=== PATIENT | male | born 1985 | race Caucasian/White ===

== ENCOUNTER 2020-02-18 14:48 | Emergency (ER) | payer OTHER ==
[~2020-02-18] VITALS: Ht 170.2 cm; Wt 77.1 kg
[2020-02-18 14:55] VITALS: BP 132/84
[2020-02-18] MEDS ORDERED: CLINDAMYCIN HC150 MG PO (15:07)
== END 2020-02-18 15:19 | disposition home or self-care (01) ==
LOC: M.ERS 14:48
DX: K04.7 Periapical abscess without sinus (principal); K02.9 Dental caries, unspecified; Z88.0 Allergy status to penicillin; Z88.1 Allergy status to other antibiotic agents

== ENCOUNTER 2020-11-22 08:32 | Emergency (ER) | payer OTHER ==
[~2020-11-22] VITALS: Ht 167.6 cm; Wt 90.7 kg
[~2020-11-22 08:32] MED LIST: CLINDAMYCIN HC150 MG PO
[2020-11-22] MEDS ORDERED: CLEOCIN HCL150 M1 PO (08:59)
[2020-11-22 09:14] VITALS: BP 120/85
== END 2020-11-22 09:16 | disposition home or self-care (01) ==
LOC: M.ERS 08:32
DX: K02.9 Dental caries, unspecified (principal); Z20.822 Contact with and (suspected) exposure to COVID-19; R05 Cough; R43.8 Other disturbances of smell and taste; Z88.0 Allergy status to penicillin; Z88.1 Allergy status to other antibiotic agents